=== PATIENT | female | born 2000 | race Caucasian/White ===

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

== ENCOUNTER 2021-10-24 06:58 | Emergency (ER) | payer OTHER ==
--- NOTE | 2021-10-24 07:23 | ED ---
General Adult HPI - General Chief complaint: Abdominal Pain Stated complaint: Diarrhea Time Seen by Provider: 10/24/21 07:10 Source: patient, RN notes reviewed, old records reviewed Mode of arrival: ambulatory - History of Present Illness Initial comments: 21-year-old female, well-appearing, presents to the emergency room with complaints of 2 episodes of diarrhea since yesterday and fever today. Patient states that this happened to her a month ago and she was seen at urgent care was told that if it happened again she should come to the emergency room. She states that the diarrhea and fever resolved on its own last month. She does not have a primary care doctor. Patient states she had coronavirus in August, has not been vaccinated. She did have a fever of 103 today and took Tylenol and her fever has come down. She is not having any vomiting, no abdominal pain at this time. Denies risk of . She is tolerating oral fluids. -: days(s) (1) Severity scale (1-10): 0 Consistency: now resolved Associated Symptoms: fever/chills, other (diarrhea) Treatments Prior to Arrival: other (Tylenol) - Related Data Home Medications Medication Instructions Recorded Confirmed Perla 1 tab PO HS 10/24/21 10/24/21 Allergies Allergy/AdvReac Type Severity Reaction Status Date / Time No Known Allergies Allergy Verified 10/24/21 08:29 Review of Systems ROS Statement: Those systems with pertinent positive or pertinent negative responses have been documented in the HPI. ROS Other: All systems not noted in ROS Statement are negative. Past Medical History Past Medical History: No Reported History Past Surgical History: No Surgical Hx Reported Past Psychological History: No Psychological Hx Reported Smoking Status: Never smoker Past Alcohol Use History: None Reported Past Drug Use History: None Reported General Exam Limitations: no limitations General appearance: alert, in no apparent distress Eye exam: Present: normal appearance ENT exam: Present: normal exam, normal oropharynx, mucous membranes moist Respiratory exam: Present: normal lung sounds bilaterally. Absent: accessory muscle use Cardiovascular Exam: Present: regular rate, normal heart sounds. Absent: JVD GI/Abdominal exam: Present: soft, normal bowel sounds. Absent: distended, tenderness Extremities exam: Present: normal inspection, full ROM, normal capillary refill. Absent: tenderness, pedal edema Back exam: Present: normal inspection, full ROM. Absent: tenderness Neurological exam: Present: alert, oriented X3 Psychiatric exam: Present: normal affect, normal mood Skin exam: Present: warm, intact, normal color. Absent: cyanosis Course Vital Signs 10/24/21 10/24/21 07:01 07:25 Temperature 98 F 99.3 F Pulse Rate 100 83 Respiratory 19 14 Rate Blood Pressure 126/80 130/78 O2 Sat by Pulse 100 100 Oximetry Medical Decision Making - Medical Decision Making 21-year-old female presents with complaints of 2 episodes of diarrhea since yesterday and fever today. This happened a month and resolved on its own. She is not having any vomiting, no abdominal pain at this time. She is afebrile. She is tolerating oral fluids. Influenza A and B and coronavirus swabs are negative. Patient is not . She has no dysuria. Urine was sent for culture. Patient was observed in the emergency room for several hours and no diarrhea. Abdomen remains soft and nontender. Vital signs are stable. At this time I do not have a cause for the patient's diarrhea likely this is viral with complaints of fever at home. She is agreeable to being discharged home. She was directed to follow up with her primary care doctor. Increase her fluid intake. Return to emergency room for any new or concerning symptoms including abnormal bleeding, increased pain with fevers. Case discussed Dr. Mora - Lab Data Lab Results 10/24/21 10/24/21 10/24/21 Range/Units 07:44 07:44 07:44 Urine Color Yellow Urine Appearance Cloudy H (Clear) Urine pH 6.0 (5.0-8.0) Ur Specific [place] 1.042 H (1.001-1.035) Urine Protein 1+ H (Negative) Urine Glucose (UA) Negative (Negative) Urine Ketones 3+ H (Negative) Urine Blood Large H (Negative) Urine Nitrite Negative (Negative) Urine Bilirubin Negative (Negative) Urine Urobilinogen 2.0 (<2.0) mg/dL Ur Leukocyte Esterase Negative (Negative) Urine RBC 8 H (0-5) /hpf Urine WBC 1 (0-5) /hpf Ur Squamous Epith Cells 12 H (0-4) /hpf Urine Bacteria Occasional H (None) /hpf Urine Mucus Many H (None) /hpf Urine HCG, Qual Not Detected (Not Detectd) Influenza Type A (PCR) Not Detected (Not Detectd) Influenza Type B (PCR) Not Detected (Not Detectd) RSV (PCR) Not Detected (Not Detectd) SARS-CoV-2 (PCR) Not Detected (Not Detectd) Disposition Clinical Impression: Diarrhea, Abdominal pain Disposition: HOME SELF-CARE Condition: Good Instructions (If sedation given, give patient instructions): Acute Diarrhea (ED), Abdominal Pain (ED) Additional Instructions: Increase your fluid intake. You can take Lomotil [id number] as needed for diarrhea. Follow-up with the primary care doctor. Return to the emergency room with any new or concerning symptoms including increased pain, persistent nausea or vomiting or abnormal bleeding. Is patient prescribed a controlled substance at d/c from ED?: No Referrals: None,Stated [Primary Care Provider] - 1-2 days Time of Disposition: 09:01
[2021-10-24 07:33] VITALS: BP 130/78; PULSE 83; RESP 14; TEMP 99.3
[2021-10-24 08:13] LABS: Appearance,Urine Cloudy (Clear); Bacteria,Urine Occasional /hpf; Bilirubin,Urine Negative (Negative); Blood,Urine Large (Negative); Color,Urine Yellow; Glucose,Urine (UA) Negative (Negative); Ketones,Urine 3+ (Negative); Leukocyte Esterase,Urine Negative (Negative); Mucus,Urine Many /hpf; Nitrite,Urine Negative (Negative); Protein,Urine 1+ (Negative); RBC,Urine 8 /hpf (0-5); Specific Gravity,Urine 1.042 (1.001-1.035); Squamous Epithelial Cell,Urine 12 /hpf (0-4); WBC,Urine 1 /hpf (0-5)
[2021-10-24 08:40] LABS: Influenza A Not Detected (Not Detectd); Influenza B Not Detected (Not Detectd)
== END 2021-10-24 09:21 | disposition home or self-care (01) ==
LOC: EC 06:58
DX: R19.7 Diarrhea, unspecified (principal); R10.9 Unspecified abdominal pain; Z20.822 Contact with and (suspected) exposure to COVID-19
CPT/HCPCS: 81001; 81025; 87636; 99284

== ENCOUNTER → 2022-01-15 | Outpatient (CLI) | payer OTHER ==
--- NOTE | 2022-01-15 09:33 | US ---
EXAMINATION TYPE: US gallbladder DATE OF EXAM: 01/15/2022 COMPARISON: NONE CLINICAL HISTORY: R10.11 RUQ ABD PAIN,R10.13 EPIGASTRIC PAIN. RUQ pain EXAM MEASUREMENTS: Liver Length: 15.0 cm Gallbladder Wall: 0.2 cm CBD: 0.4 cm Right Kidney: 9.2 x 4.1 x 4.0 cm Pancreas: visualized portions appear wnl Liver: wnl Gallbladder: no evidence of stones Evidence for sonographic Sahu's sign: no CBD: wnl Right Kidney: wnl Visualized pancreas within normal limits. Visualized liver shows no worrisome mass or ductal dilatati on. No surrounding ascites. No intraluminal gallstones. No right-sided hydronephrosis. IMPRESSION: No gallstones or ultrasound evidence for acute cholecystitis.
== END | disposition home or self-care (01) ==
LOC: RADUSWWP 08:53
PROVIDERS: ATTEND Family Medicine
DX: R10.11 Right upper quadrant pain (principal); R10.13 Epigastric pain
CPT/HCPCS: 76705